=== PATIENT | female | born 1925 | race Caucasian/White ===

== ENCOUNTER 2017-04-25 17:54 | Inpatient (IN) | payer OTHER ==
[~2017-04-25] VITALS: Ht 160 cm; Wt 68.0 kg
[~2017-04-25 17:54] MED LIST: ALENDRONATE; ALENDRONATE SOD70 M3 PO; AMITRIPTYLINE; ASPIRIN; ATORVASTATIN CA40 M1 PO; CALTRATE; CALTRATE 600600 MG PO; CLOPIDOGREL75 M1 PO; DAILY MULTIPLE1 TAB PO; DIGOXIN; DIGOXIN0.125 M1 PO; LAC PO; LEVAQUIN750 MG PO; LISINOPRIL2.5 MG PO; METOPROLOL SUCC25 M1 PO; NAMENDA; TOP50; VITAMIN E; XARELTO15 M1 PO; [UNRECOGNIZED DRUG - CODE]
[2017-04-25 20:34] LABS: BASOPHIL % 0.5 % (0-2); PLATELET COUNT 191 x10^3mcL (130-400)
[2017-04-25 20:38] LABS: CALCIUM 8.8 mg/dL (8.5-10.1); CARBON DIOXIDE 28.3 mmol/L (21-32); CHLORIDE SERUM 105 mmol/L (98-107); CREATININE SERUM 1.1 mg/dL (0.6-1.0); GLUCOSE SERUM 92 mg/dL (74-106); POTASSIUM SERUM 4.2 mmol/L (3.5-5.1); SODIUM SERUM 141 mmol/L (136-145)
[2017-04-25 20:43] LABS: ALBUMIN 3.2 g/dL (3.4-5.0); ALKALINE PHOSPHATASE 83 U/L (46-116); ALT/SGPT 19 U/L (14-59); AST/SGOT 17 U/L (15-37); BILIRUBIN TOTAL 0.47 mg/dL (0.20-1.00); LIPASE 129 IU/L (73-393); RED CELL DISTRIBUTION WIDTH 16.1 % (11.5-14.5); TOTAL PROTEIN, SERUM 7.1 g/dL (6.4-8.2)
[2017-04-25 23:37] LABS: UA SPECIFIC GRAVITY <=1.005 (1.005-1.035); microscopic required? YES; urine erythrocyte TRACE (NEGATIVE)
[2017-04-26 01:38] VITALS: BP 111/69
[2017-04-26 02:45] LABS: MAGNESIUM 2.1 mg/dL (1.8-2.4); PHOSPHOROUS 4.1 mg/dL (2.5-4.9)
[2017-04-26 03:01] LABS: FREE T4 1.08 ng/dL (0.76-1.46); FREE THYROXINE INDEX 2.4 ug/dL (1.4-4.5); T4(THYROXINE) 7.2 ug/dL (4.7-13.3)
[2017-04-26 04:15] LABS: T3 TOTAL 0.89 ng/mL
[2017-04-26 05:35] VITALS: BP 107/51
[2017-04-26 06:16] LABS: BASOPHIL % 0.3 % (0-2); PLATELET COUNT 182 x10^3mcL (130-400)
[2017-04-26 06:29] LABS: CALCIUM 8.7 mg/dL (8.5-10.1); CARBON DIOXIDE 24.5 mmol/L (21-32); CHLORIDE SERUM 107 mmol/L (98-107); CREATININE SERUM 0.8 mg/dL (0.6-1.0); GLUCOSE SERUM 98 mg/dL (74-106); POTASSIUM SERUM 4.3 mmol/L (3.5-5.1); SODIUM SERUM 140 mmol/L (136-145)
[2017-04-26 06:44] LABS: RED CELL DISTRIBUTION WIDTH 15.7 % (11.5-14.5)
[2017-04-26 09:25] VITALS: BP 105/69
[2017-04-26 12:05] VITALS: BP 103/52
[2017-04-27 04:41] VITALS: BP 145/60
[2017-04-27 07:21] LABS: BASOPHIL % 0.8 % (0-2); PLATELET COUNT 175 x10^3mcL (130-400)
[2017-04-27 07:22] LABS: RED CELL DISTRIBUTION WIDTH 15.6 % (11.5-14.5)
[2017-04-27 07:46] LABS: CALCIUM 8.4 mg/dL (8.5-10.1); CARBON DIOXIDE 20.7 mmol/L (21-32); CHLORIDE SERUM 110 mmol/L (98-107); CREATININE SERUM 0.8 mg/dL (0.6-1.0); GLUCOSE SERUM 82 mg/dL (74-106); POTASSIUM SERUM 3.7 mmol/L (3.5-5.1); SODIUM SERUM 143 mmol/L (136-145)
[2017-04-27 08:35] VITALS: BP 122/79
[2017-04-27 13:21] VITALS: BP 123/81
[2017-04-27 18:20] VITALS: BP 126/78
[2017-04-27 21:00] VITALS: BP 122/76
[2017-04-28 05:56] VITALS: BP 130/68
[2017-04-28 06:11] LABS: CALCIUM 8.2 mg/dL (8.5-10.1); CARBON DIOXIDE 22.2 mmol/L (21-32); CHLORIDE SERUM 113 mmol/L (98-107); CREATININE SERUM 0.8 mg/dL (0.6-1.0); GLUCOSE SERUM 76 mg/dL (74-106); POTASSIUM SERUM 3.5 mmol/L (3.5-5.1); SODIUM SERUM 146 mmol/L (136-145)
[2017-04-28 06:35] LABS: BASOPHIL % 0.4 % (0-2); PLATELET COUNT 168 x10^3mcL (130-400)
[2017-04-28 18:19] VITALS: BP 134/79
[2017-04-28 21:30] VITALS: BP 132/68
[2017-04-28 23:23] VITALS: BP 136/82
[2017-04-29 04:37] LABS: CALCIUM 7.7 mg/dL (8.5-10.1); CHLORIDE SERUM 112 mmol/L (98-107); CREATININE SERUM 0.7 mg/dL (0.6-1.0); GLUCOSE SERUM 92 mg/dL (74-106); POTASSIUM SERUM 3.6 mmol/L (3.5-5.1); SODIUM SERUM 143 mmol/L (136-145)
[2017-04-29 04:48] LABS: BASOPHIL % 0.4 % (0-2); PLATELET COUNT 180 x10^3mcL (130-400)
[2017-04-29 04:50] LABS: RED CELL DISTRIBUTION WIDTH 15.5 % (11.5-14.5)
[2017-04-29 06:05] VITALS: BP 128/62
[2017-04-29 07:44] VITALS: BP 114/54
[2017-04-29 09:49] VITALS: BP 130/88
[2017-04-29 18:29] VITALS: BP 136/80
[2017-04-30 05:37] VITALS: BP 148/88
[2017-04-30 06:01] LABS: BASOPHIL % 0.6 % (0-2); PLATELET COUNT 175 x10^3mcL (130-400)
[2017-04-30 06:25] LABS: CALCIUM 8.3 mg/dL (8.5-10.1); CARBON DIOXIDE 22.8 mmol/L (21-32); CHLORIDE SERUM 112 mmol/L (98-107); CREATININE SERUM 0.6 mg/dL (0.6-1.0); GLUCOSE SERUM 104 mg/dL (74-106); POTASSIUM SERUM 3.3 mmol/L (3.5-5.1); SODIUM SERUM 145 mmol/L (136-145)
[2017-04-30 06:36] LABS: RED CELL DISTRIBUTION WIDTH 15.4 % (11.5-14.5)
[2017-04-30 10:38] VITALS: BP 147/75
[2017-04-30] MEDS ORDERED: COL100 PO (10:56)
[2017-04-30] MEDS ORDERED: APAP/HYDROCODON1 T13 PO (10:56)
[2017-04-30 12:46] VITALS: BP 147/75
[2017-04-30] MEDS ORDERED: METOPROLOL TART25 M1 PO (12:53)
== END 2017-04-30 14:40 | disposition home or self-care (01) | DRG 393 ==
LOC: ED 17:54 → DU 04-26 00:17 → MU 04-29 11:42
PROVIDERS: Emergency Medicine; Family Medicine; ADMIT Family Medicine
DX: K40.20 Bilateral inguinal hernia, without obstruction or gangrene, not specified as recurrent (principal); N17.0 Acute kidney failure with tubular necrosis; N39.0 Urinary tract infection, site not specified; I48.91 Unspecified atrial fibrillation; M81.0 Age-related osteoporosis without current pathological fracture; D63.8 Anemia in other chronic diseases classified elsewhere; K57.30 Diverticulosis of large intestine without perforation or abscess without bleeding; E87.8 Other disorders of electrolyte and fluid balance, not elsewhere classified; E78.5 Hyperlipidemia, unspecified; M51.36 Other intervertebral disc degeneration, lumbar region; F03.90 Unspecified dementia, unspecified severity, without behavioral disturbance, psychotic disturbance, mood disturbance, and anxiety; I25.2 Old myocardial infarction; Z98.61 Coronary angioplasty status; Z95.0 Presence of cardiac pacemaker; Z79.82 Long term (current) use of aspirin; Z68.24 Body mass index [BMI] 24.0-24.9, adult; Z79.01 Long term (current) use of anticoagulants; Z85.030 Personal history of malignant carcinoid tumor of large intestine
CPT/HCPCS: 83880; 84439; J1956; J2270; J3490; J7030; J7040; Q0092; Q9967